=== PATIENT | male | born 1950 | race Asian ===

== ENCOUNTER → 2020-08-13 | Outpatient (CLI) | payer MEDICARE, OTHER | END | disposition home or self-care (01) | LOC: CVU 09:43 | PROVIDERS: ATTEND Family Medicine | DX: R07.9 Chest pain, unspecified (principal) | CPT/HCPCS: 93306 ==

== ENCOUNTER → 2020-10-15 | Outpatient (CLI) | payer MEDICARE, OTHER ==
[~2020-10-15] MED LIST: OMNIPAQUE 350 MG/ML, 150 ML BOTTLE ONE
== END | disposition home or self-care (01) ==
LOC: CFH 10:02
PROVIDERS: ATTEND Physician Assistant
DX: N20.0 Calculus of kidney (principal); N32.3 Diverticulum of bladder; R31.0 Gross hematuria
CPT/HCPCS: 74178; 82565; Q9967